=== PATIENT | female | born 1960 | race Caucasian/White ===

== ENCOUNTER 2023-04-26 14:15 | Outpatient (AMB) | payer OTHER, SELFPAY ==
--- NOTE | 2023-04-26 15:03 | A.OFFPC_ITS ---
Vital Signs 04/26/23 15:08 Height 5 ft 4 in Weight 169 lb 4 oz BMI 29.0 BP 134/82 Blood Pressure Location Lt brachial Position Sitting Intake Visit Reasons: New Patient-asthma Allergies No Known Allergies Allergy (Verified 04/26/23 15:32) Medication List - Last Reconciled 04/26/23 by MANAN Rivera adalimumab (Humira(CF) Pen) inject one - 40 mg/0.4 mL pen every 2 weeks subcut albuterol sulfate 90 mcg/actuation 2 puffs inhalation Q6H PRN folic acid 1 mg PO DAILY lorazepam 1 mg PO BID PRN methotrexate 8 Every Sunday tiotropium bromide 2.5 mcg/actuation (Spiriva Respimat) 2 puffs inhalation DAILY Tobacco use date assessed: 04/26/23 Fall risk assessment: No Falls in past year Last assessed Fall Risk: 04/26/23 Dental Screening Dental Screen Date: 04/26/23 Did you have a dental visit in the last 12 months?: Yes Did you have a dental problem in the last 6 months where you did not have access to dental care?: No Was dental information given to patient?: No HPI New Patient-asthma HPI Details asthma/smoker: approx 1/2 a pack a day. She is not interested in LDCT. RA: follows up with rheumatology. last seen by a PCP last November REPLACED BY [facility] Medical History (Updated 04/26/23 @ 15:27 by MANAN Rivera) Smoker Asthma Chronic rheumatic arthritis Social History Housing: House Patient Tobacco Use Status: Current everyday Tobacco user e-Cigarette/Vaping Use: Never Used service: No Current occupational status: retired Cognitive needs: No Hearing needs: No Vision needs: No Questionnaire PHQ-9 Over the last 2 weeks, how often have you been bothered by any of the following problems? 1. Little interest or pleasure in doing things: not at all 2. Feeling down, depressed, or hopeless: not at all 3. Trouble falling or staying asleep, or sleeping too much: not at all 4. Feeling tired or having little energy: several days 5. Poor appetite or overeating: not at all 6. Feeling bad about yourself - or that you are a failure or have let yourself or your family down: not at all 7. Trouble concentrating on things, such as reading the newspaper or watching television: not at all 8. Moving or speaking so slowly that other people could have noticed. Or the opposite - being so fidgety or restless that you have been moving around a lot more than usual: not at all 9. Thoughts that you would be better off or of hurting yourself in some way: not at all Total score: 1 Depression Screening Interpretation: Negative 13373 - PHQ-9 Billing: Yes Source: Developed by Drs. Josse Solano, Ariella Palacios, Bridger Nails and colleagues, with an educational edgar from [employer]. Thrive Questionnaire Date Thrive assessed: 04/26/23 I am a: Patient What is your living situation today?: I have a steady place to live Within the past 12 months, did the food you bought not last and you didn't have the money to get more?: Never true Within the past 12 months, did you worry whether your food would run out before you got money to buy more?: Never true Do you have trouble paying for medicines?: No Do you have trouble getting transportation to medical appointments?: No Do you have trouble paying your heating and electricity bill?: No Do you have trouble taking care of your child, family member or friend?: No Do you have trouble with day-to-day activities such as bathing, preparing meals, shopping, managing finances, etc.?: No Are you currently unemployed and looking for a job?: No Are you interested in more education?: No Currently or been in a relationship where the following occur: no concerns reported AUDIT C Alcohol Use Questionnaire (AUDIT-C) 1. How often do you have a drink containing alcohol?: Never 3. How often do you have six or more drinks on one occasion?: Never Total Score: 0 Score Reviewed/Action Taken: Yes NARDA-7 AMB Questionnaire NARDA-7 Date NARDA - 7 assessed: 04/26/23 Feeling nervous, anxious, or on edge: 1 = Several days Not being able to stop or control worryin = More than half the days Worrying too much about different things: 2 = More than half the days Trouble relaxin = Not at all Being so restless that it is hard to sit still: 0 = Not at all Becoming easily annoyed or irritable: 0 = Not at all Feeling afraid as if something awful might happen: 0 = Not at all Total NARDA-7 score (0-4 normal; 5-9 mild; 10-14 moderate; 15-21 severe): 5 Source: Developed by Drs. Josse Solano, Ariella Palacios, Bridger Nails and colleagues, with an educational edgar from [employer]. NARDA-7 Assessment Billing NARDA-7 Assessment Tool: NARDA-7 Assessment 48336 Physical exam (Primary Care) Vital Signs: Last Vital Signs BP 134/82 04/26/23 15:08 BMI result Body Mass Index 29.0 Tobacco/Smoking Status: Tobacco use Status Tobacco use date assessed 04/26/23 04/26/23 15:18 Patient Tobacco Use Status Current everyday Tobacco 04/26/23 15:18 e-Cigarette/Vaping Use Never Used 04/26/23 15:18 PHQ-9: PHQ-9 Score PHQ-9: Total score 1 04/26/23 15:31 Depression Screening Interpretation: Negative Thrive Assessment: Date of Thrive Assessment Date Thrive assessed 04/26/23 04/26/23 15:31 Currently or been in a relationship where the following occur: no concerns reported Const General: cooperative Resp Effort & Inspection: normal respiratory effort Cardio Rate: regular rate Rhythm: regular rhythm Heart sounds: S1 normal heart sound present, S2 normal heart sound present and Murmur heart sound present (? faint systolic) Extrem Right lower extremity: no edema Left lower extremity: no edema Psych Appearance: grossly normal Mental Status: mental status grossly normal Speech and movement: Normal speech and movement present Affect: normal affect Attitude: cooperative Thought process: Normal thought process present Thought content: Normal thought content present Assessment and Plan Assessment & Plan (1) Smoker: Code(s): F17.200 - Nicotine dependence, unspecified, uncomplicated Orders: Orders Complete Blood Count Auto Diff Today F17.200 - Nicotine dependence, unspecified, uncomplicated Comprehensive [place]. Panel Fast Today F17.200 - Nicotine dependence, unspecified, uncomplicated TSH reflex Free T4 Today F17.200 - Nicotine dependence, unspecified, uncomplicated UA CC w/rflx Micro + Cult Today F17.200 - Nicotine dependence, unspecified, uncomplicated Lipid Panel Today F17.200 - Nicotine dependence, unspecified, uncomplicated Referrals Cologuard Test Z12.11 - Encounter for screening for malignant neoplasm of colon, Z12.12 - Encounter for screening for malignant neoplasm of rectum Medications: New albuterol sulfate 90 mcg/actuation 2 puffs inhalation Q6H PRN 8.5 grams 0RF bronchospasm Coding Level of Care Code New Pt Level 3 (21220) Diagnoses Smoker F17.200 Additional Codes NARDA-7 Assessment Billing - NARDA-7 Assessment Tool: NARDA-7 Assessment 80308 ([id number])
[2023-04-26 15:08] VITALS: BP 134/82; BMI 29.0
== END 2023-04-26 16:00 | disposition home or self-care (01) ==
PROVIDERS: Visit Provider Nurse Practitioner Family
DX: F17.210 Nicotine dependence, cigarettes, uncomplicated (principal)
CPT/HCPCS: 99203

== ENCOUNTER 2023-05-16 10:02 | Outpatient (REF) | payer OTHER, SELFPAY ==
[2023-05-16 13:31] LABS: MANUAL DIFF FLAG NO
[2023-05-16 13:32] LABS: Appearance Urine Clear; Color Urine Yellow; Glucose Urine UA Negative (Negative); Leukocyte Esterase Urine Moderate (2+) (Negative); Nitrite Urine Negative (Negative); PH 5.5 (5.0-9.0); Specific Gravity - Urine 1.015 (1.005-1.025); UMIC TRIGGER UACC YES; Urine Blood Negative (Negative); Urine Ketones Negative (Negative); Urine Protein Negative (Neg-Trace)
[2023-05-16 13:37] LABS: Bacteria Urine 2+ (None Seen); Hyaline Casts Urine 0-2 /LPF (0-2); RBC Urine 0-2 /HPF (0-2); UACC Culture Trigger YES
[2023-05-16 13:54] LABS: Basophils Absolute Auto 0.1 X10*3/uL (0.0-0.2); Basophils Percent Auto 1.3 % (0-2); Eosinophils Absolute Auto 0.3 X10*3/uL (0.0-0.4); Eosinophils Percent Auto 4.6 % (0-4); Hematocrit 40.1 % (37.0-47.0); Hemoglobin 13.4 g/dl (12.0-16.0); Imm Gran Abs Auto 0.03 X10*3/uL (0.00-0.03); Imm Gran Pct Auto 0.5 % (0.0-0.4); Lymphocytes Absolute Auto 1.5 X10*3/uL (1.2-4.9); Lymphocytes Percent Auto 24.8 % (20-40); Mean Corpuscular HGB Conc 33.4 g/dl (31.0-35.0); Mean Corpuscular Hemoglobin 31.8 pg (27.0-33.0); Mean Corpuscular Volume 95.2 fL (80.0-98.0); Mean Platelet Volume 10.7 fL (9.4-12.3); Monocytes Absolute Auto 0.6 X10*3/uL (0.1-1.2); Monocytes Percent Auto 9.8 % (2-11); Neutrophils Absolute Auto 3.5 x10*3/uL (2.0-8.3); Platelet Count 286 X10*3/uL (160-400); Red Blood Count 4.21 X10*6/uL (4.20-5.50); Red Cell Distribution Width 12.6 % (11.0-16.0); White Blood Count 5.9 X10*3/uL (4.8-10.8)
[2023-05-16 14:28] LABS: Alanine Aminotransferase 20 U/L (0-31); Albumin Level 4.2 g/dL (3.5-5.0); Alkaline Phosphatase 85 U/L (39-117); Anion Gap 17 (12-20); Aspartate Amino Transferase 17 U/L (5-31); Bilirubin Total 0.7 mg/dL (0.0-1.0); Blood Urea Nitrogen 9 mg/dL (9-16); Calcium 9.7 mg/dL (8.4-10.2); Carbon Dioxide 22 mmol/L (22-29); Chloride 105 mmol/L (96-108); Cholesterol 276 mg/dL (<200); Estimated Glomerular Filt Rate > 60; Glucose Fasting 100 mg/dL (60-99); HDL Cholesterol 45 mg/dL (>40); LDL Cholesterol Calculated 206 mg/dL (<100); Potassium 3.7 mmol/L (3.3-5.1); Sodium 140 mmol/L (135-145); TSH reflex Free T4 1.18 uIU/mL (0.32-4.0); Total Protein 7.3 g/dL (6.5-8.0); Triglycerides 129 mg/dL (<150)
== END 2023-05-16 10:03 | disposition home or self-care (01) ==
LOC: HO.HMGCLDS 10:02
PROVIDERS: PCP Nurse Practitioner Family; Visit Provider Nurse Practitioner Family
DX: F17.200 Nicotine dependence, unspecified, uncomplicated (principal)
CPT/HCPCS: 36415; 80053; 80061; 81001; 84443; 85025; 87086

== ENCOUNTER 2023-09-04 10:17 | Outpatient (REF) | payer OTHER, SELFPAY ==
[2023-09-04 14:11] LABS: Cholesterol 177 mg/dL (<200); HDL Cholesterol 51 mg/dL (>40); LDL Cholesterol Calculated 107 mg/dL (<100); Triglycerides 97 mg/dL (<150)
== END 2023-09-04 10:18 | disposition home or self-care (01) ==
LOC: HO.HMGCLDS 10:17
PROVIDERS: PCP Nurse Practitioner Family; Visit Provider Nurse Practitioner Family
DX: E78.5 Hyperlipidemia, unspecified (principal)
CPT/HCPCS: 36415; 80061

== ENCOUNTER 2023-10-25 09:14 | Outpatient (AMB) | payer OTHER, SELFPAY ==
[2023-10-25 09:15] VITALS: BP 136/80; PULSE 72; O2SAT 96; BMI 28.3
--- NOTE | 2023-10-25 09:15 | MHC.PC.OV ---
Vital Signs 10/25/23 09:15 Height 5 ft 4 in Weight 165 lb BMI 28.3 BP 136/80 Blood Pressure Location Lt brachial Position Sitting Pulse 72 Pulse Source Pulse Oximeter Pulse Oximetry (%) 96 Oxygen Delivery Method Room Air Intake Visit Reasons: 6 month follow up Intake Note: pt is here for 6 month follow up [employer] Required: No Allergies No Known Allergies Allergy (Verified 10/25/23 09:16) Medication List - Last Reconciled 10/25/23 by MANAN Rivera adalimumab (Humira(CF) Pen) inject one - 40 mg/0.4 mL pen every 2 weeks subcut albuterol sulfate 90 mcg/actuation 2 puffs inhalation Q6H PRN atorvastatin 20 mg PO BEDTIME folic acid 1 mg PO DAILY lorazepam 1 mg PO BID PRN methotrexate 8 Every Sunday Tobacco use date assessed: 10/25/23 Fall risk assessment: No Falls in past year Last assessed Fall Risk: 10/25/23 Dental Screening Dental Screen Date: 10/25/23 Did you have a dental visit in the last 12 months?: Yes Did you have a dental problem in the last 6 months where you did not have access to dental care?: No Was dental information given to patient?: Patient has dentist HPI 6 month follow up HPI Details dyslipidemia: Pt is on a statin, cholesterol/LDL dropped in half. Pt reports adjusting her diet as well. She is feeling great. Denies chest pain, shortness of breath, and dizziness. [facility] Medical History Smoker Asthma Chronic rheumatic arthritis Surgical History No pertinent past surgical history Social History Housing: House Patient Tobacco Use Status: Current everyday Tobacco user Cigarettes Per Day: 5 e-Cigarette/Vaping Use: Never Used service: No Current occupational status: retired Cognitive needs: No Hearing needs: No Vision needs: No Questionnaire PHQ-9 Over the last 2 weeks, how often have you been bothered by any of the following problems? 1. Little interest or pleasure in doing things: not at all 2. Feeling down, depressed, or hopeless: not at all 3. Trouble falling or staying asleep, or sleeping too much: not at all 4. Feeling tired or having little energy: not at all 5. Poor appetite or overeating: not at all 6. Feeling bad about yourself - or that you are a failure or have let yourself or your family down: not at all 7. Trouble concentrating on things, such as reading the newspaper or watching television: not at all 8. Moving or speaking so slowly that other people could have noticed. Or the opposite - being so fidgety or restless that you have been moving around a lot more than usual: not at all 9. Thoughts that you would be better off or of hurting yourself in some way: not at all Total score: 0 Depression Screening Interpretation: Negative Depression Screening Done: Yes 10889 - PHQ-9 Billing: Yes Source: Developed by Drs. Josse Solano, Ariella Palacios, Bridger Nails and colleagues, with an educational edgar from [employer]. Thrive Questionnaire Date Thrive assessed: 10/25/23 I am a: Patient What is your living situation today?: I have a steady place to live Within the past 12 months, did the food you bought not last and you didn't have the money to get more?: Never true Within the past 12 months, did you worry whether your food would run out before you got money to buy more?: Never true Do you have trouble paying for medicines?: No Do you have trouble getting transportation to medical appointments?: No Do you have trouble paying your heating and electricity bill?: No Do you have trouble taking care of your child, family member or friend?: No Do you have trouble with day-to-day activities such as bathing, preparing meals, shopping, managing finances, etc.?: No Are you currently unemployed and looking for a job?: No Are you interested in more education?: No Please select the resources that you would like help with: None Currently or been in a relationship where the following occur: no concerns reported THRIVE Score: 0 AUDIT C Alcohol Use Questionnaire (AUDIT-C) 1. How often do you have a drink containing alcohol?: Never 3. How often do you have six or more drinks on one occasion?: Never Total Score: 0 Score Reviewed/Action Taken: Yes NARDA-7 AMB Questionnaire NARDA-7 Date NARDA - 7 assessed: 10/25/23 Feeling nervous, anxious, or on edge: 0 = Not at all Not being able to stop or control worryin = Not at all Worrying too much about different things: 0 = Not at all Trouble relaxin = Not at all Being so restless that it is hard to sit still: 0 = Not at all Becoming easily annoyed or irritable: 0 = Not at all Feeling afraid as if something awful might happen: 0 = Not at all Total NARDA-7 score (0-4 normal; 5-9 mild; 10-14 moderate; 15-21 severe): 0 Source: Developed by Drs. Josse Solano, Ariella Palacios, Bridger Nails and colleagues, with an educational edgar from [employer]. NARDA-7 Assessment Billing NARDA-7 Assessment Tool: NARDA-7 Assessment 33951 Review of Systems Const Reports as per HPI Physical exam (Primary Care) Vital Signs: Last Vital Signs Pulse 72 10/25/23 09:15 BP 136/80 10/25/23 09:15 Pulse Ox 96 10/25/23 09:15 Oxygen Delivery Method Room Air 10/25/23 09:15 BMI result Body Mass Index 28.3 Tobacco/Smoking Status: Tobacco use Status Tobacco use date assessed 10/25/23 10/25/23 09:18 Patient Tobacco Use Status Current everyday Tobacco 10/25/23 09:18 e-Cigarette/Vaping Use Never Used 10/25/23 09:18 PHQ-9: PHQ-9 Score PHQ-9: Total score 0 10/25/23 09:23 Depression Screening Interpretation: Negative Thrive Assessment: Date of Thrive Assessment Date Thrive assessed 10/25/23 10/25/23 09:18 Currently or been in a relationship where the following occur: no concerns reported Const General: cooperative Orientation/consciousness: patient oriented x3 Resp Effort & Inspection: normal respiratory effort Auscultation: clear to auscultation bilaterally Cardio Other: difficult to auscultate Heart sounds: S1 normal heart sound present, S2 normal heart sound present and Murmur heart sound present systolic (faint) Neuro General: patient oriented x3 Extrem Right lower extremity: no edema Left lower extremity: no edema Psych Appearance: grossly normal Mental Status: mental status grossly normal Speech and movement: Normal speech and movement present Affect: normal affect Attitude: cooperative Thought process: Normal thought process present Thought content: Normal thought content present Insight: Good insight present (Psych) Judgement: Good judgement present (Psych) Assessment and Plan Assessment & Plan (1) Dyslipidemia: Code(s): E78.5 - Hyperlipidemia, unspecified Plan: Continue atorvastatin, labs ordered (2) Systolic murmur: Code(s): R01.1 - Cardiac murmur, unspecified Plan: Echo ordered Plan The patient agreed to the use of a caregivers non medical for this encounter. Scribed for JERRY Ellis- by Mari Nowak caregivers non medical, on 10/25/2023 at 09:45 EST. Orders: Orders CA echo transthoracic complete Today R01.1 - Cardiac murmur, unspecified TSH reflex Free T4 Today E78.5 - Hyperlipidemia, unspecified, R01.1 - Cardiac murmur, unspecified UA CC w/rflx Micro + Cult Today E78.5 - Hyperlipidemia, unspecified, R01.1 - Cardiac murmur, unspecified AMB EKG-In Office Today E78.5 - Hyperlipidemia, unspecified, F17.200 - Nicotine dependence, unspecified, uncomplicated, R01.1 - Cardiac murmur, unspecified Complete Blood Count Auto Diff Today E78.5 - Hyperlipidemia, unspecified, R01.1 - Cardiac murmur, unspecified Comprehensive [place]. Panel Fast Today E78.5 - Hyperlipidemia, unspecified, R01.1 - Cardiac murmur, unspecified Lipid Panel Today E78.5 - Hyperlipidemia, unspecified, R01.1 - Cardiac murmur, unspecified Medications: Refilled atorvastatin 20 mg PO BEDTIME 90 tabs 0RF Coding Level of Care Code Est Pt Level 3 (96000) Diagnoses Dyslipidemia E78.5 Systolic murmur R01.1 Additional Codes NARDA-7 Assessment Billing - NARDA-7 Assessment Tool: NARDA-7 Assessment 58038 ([id number])
== END 2023-10-25 10:11 | disposition home or self-care (01) ==
PROVIDERS: PCP Internal Medicine; Visit Provider Nurse Practitioner Family
DX: E78.5 Hyperlipidemia, unspecified (principal); R01.1 Cardiac murmur, unspecified
CPT/HCPCS: 99213

== ENCOUNTER → 2023-11-15 10:34 | Outpatient (REF) | payer MEDICARE, OTHER, SELFPAY ==
--- NOTE | 2023-11-15 10:36 | CA_ITS ---
Transthoracic Echocardiogram Patient (Last, First, Middle): Neelam Bradford A Gender: Female Date of : 1960 Age: 63 Procedure Date: 11/15/2023 Procedure Type: Transthoracic Echocardiogram Location: OP Height: 154.94 cm Weight: 73.94 kg BSA: 1.73 m2 Heart Rate: 64 bpm BP: 150 / 80 mmHg Manager Site: [facility] Referring MD: Stan Eli [facility] Symptoms: R01.1 - Cardiac murmur, unspecified Study Quality: Fair ECG Rhythm: Sinus Conclusions: - The left ventricular systolic function is normal. The calculated ejection fraction is 55% by biplane method. - There is mild calcification of the aortic valve. - No obvious valvular pathology seen on this study. Findings Left Ventricle Normal left ventricular cavity size. There is normal left ventricular wall thickness. The left ventricular systolic function is normal. The calculated ejection fraction is 55% by biplane method. There is no evidence of regional wall motion abnormalities. Diastolic function is normal for age. LV peak GLS -18.6%. Right Ventricle Normal right ventricular cavity size and systolic function. Atria Both atria are normal in size. Aortic Valve There is mild calcification of the aortic valve. There is no aortic valve stenosis. There is no aortic valve regurgitation. Mitral Valve The mitral valve appears normal. There is trace mitral valve regurgitation. There is no mitral valve stenosis. Pulmonic Valve The pulmonic valve is likely normal. Tricuspid Valve Normal tricuspid valve structure. There is trace tricuspid valve regurgitation. Tricuspid regurgitation envelope is inadequate for calculation of right ventricular systolic pressure. Great Vessels The asc aorta is normal in size. Venous The inferior vena cava is normal in size and collapses greater than 50% with inspiration. Pericardium/Pleural There is no evidence of pericardial effusion. Prior Study Comparison No prior study available for comparison. Recommendations, Care & Conclusions No obvious valvular pathology seen on this study. Measurements 2D Linear Measurements IVSd: 1.02 0.6-0.9/0.6-1.0 cm LVIDd: 4.45 3.9-5.3/4.2-5.9 cm LVIDd Index: 2.57 2.4-3.2/2.2-3.1 cm/m2 LVIDs: 2.58 2.0-3.6 cm LVPWd: 0.94 0.7-1.1 cm LA Diam: 3.10 2.7-3.8/3.0-4.0 cm LAIDs Index: 1.79 1.5-2.3 cm/m2 LV Mass: 181.75 67-162/88-224 g LV Mass Index: 105.06 43-95/49-115 g/m2 LVOT Diam: 2.10 3.0+(-)1.3 cm 2D Systolic Function EF 4C: 56.60 >55% EF 2C: 53.80 >55% EF BiP: 55.30 >55% Mitral Valve MV Pk E: 0.64 MV PK A: 0.81 MV Decel Time: 191.00 E/A: 0.80 E'Lateral: 9.46 E'Medial: 11.30 E/E' Med: 5.70 E/E' Lat: 6.80 PHT: 56.00 MVA PHT: 3.93 Decel [place]: 3.36 Aortic Valve AoV Pk Andi: 1.59 AoV Mn Andi: 1.10 AoV VTI: 0.38 AoV Pk Grad: 10.00 Aov Mn Grad: 5.00 ALEXANDRU Cont.VTI: 2.08 LVOT LVOT Pk Andi: 1.06 LVOT Mn Andi: 0.67 LVOT VTI: 0.23 LVOT Pk Grad: 4.00 LVOT Mn Grad: 2.00 LVOT Diam: 2.10 LVOT Area: 3.46 Diastolic Function MV Pk E: 0.64 MV Pk A: 0.81 E/A: 0.80 E'Medial: 11.30 E/E' Med: 5.70 E' Laterial: 9.46 E/E' Lat: 6.80 Right Ventricle TAPSE (mm): 23.50 TVS' Andi: 10.40 Tricuspid Valve RA Press: 3.00 Great Vessels Aorta Sinus of Valsalva: 3.30 2.0-3.5 cm Ao Asc: 2.80 2.1-3.4 cm Pulmonary Valve PV Pk Andi: 1.10 Peak PV Grad: 5.00 Updated in Other Vendor System with Status of Final Dave Bautista MD electronically signed on 11/16/2023 11:45:09 AM with status of Final
== END ==
LOC: HO.CARD 10:34
PROVIDERS: PCP Nurse Practitioner Family; Visit Provider Nurse Practitioner Family
DX: R01.1 Cardiac murmur, unspecified (principal)
CPT/HCPCS: 93306; 93356

== ENCOUNTER → 2023-11-15 10:36 | Outpatient (BNV) | payer MEDICARE, SELFPAY | PROVIDERS: PCP Nurse Practitioner Family; Visit Provider Internal Medicine | DX: I35.8 Other nonrheumatic aortic valve disorders (principal); R01.1 Cardiac murmur, unspecified | CPT/HCPCS: 93306; 93356 ==

== ENCOUNTER 2024-04-25 09:22 | Outpatient (REF) | payer MEDICARE, SELFPAY ==
[2024-04-25 13:18] LABS: MANUAL DIFF FLAG NO
[2024-04-25 13:48] LABS: Appearance Urine Clear; Basophils Absolute Auto 0.1 X10*3/uL (0.0-0.2); Basophils Percent Auto 1.4 % (0-2); Color Urine Yellow; Eosinophils Absolute Auto 0.3 X10*3/uL (0.0-0.4); Eosinophils Percent Auto 4.6 % (0-4); Glucose Urine UA Negative (Negative); Hematocrit 38.9 % (37.0-47.0); Hemoglobin 13.1 g/dl (12.0-16.0); Imm Gran Abs Auto 0.04 X10*3/uL (0.00-0.03); Imm Gran Pct Auto 0.6 % (0.0-0.4); Leukocyte Esterase Urine Small (1+) (Negative); Lymphocytes Absolute Auto 1.7 X10*3/uL (1.2-4.9); Lymphocytes Percent Auto 24.2 % (20-40); Mean Corpuscular HGB Conc 33.7 g/dl (31.0-35.0); Mean Corpuscular Hemoglobin 33.5 pg (27.0-33.0); Mean Corpuscular Volume 99.5 fL (80.0-98.0); Mean Platelet Volume 10.8 fL (9.4-12.3); Monocytes Absolute Auto 0.6 X10*3/uL (0.1-1.2); Monocytes Percent Auto 8.3 % (2-11); Neutrophils Absolute Auto 4.4 x10*3/uL (2.0-8.3); Neutrophils Percent Auto 60.9 % (45-73); Nitrite Urine Negative (Negative); Platelet Count 225 X10*3/uL (160-400); Red Blood Count 3.91 X10*6/uL (4.20-5.50); Red Cell Distribution Width 12.7 % (11.0-16.0); Specific Gravity - Urine 1.015 (1.005-1.025); UMIC TRIGGER UACC YES; Urine Blood Negative (Negative); Urine Ketones Negative (Negative); Urine Protein Negative (Neg-Trace); White Blood Count 7.2 X10*3/uL (4.8-10.8)
[2024-04-25 13:56] LABS: Alanine Aminotransferase 25 U/L (0-31); Alkaline Phosphatase 89 U/L (39-117); Anion Gap 12 (12-20); Aspartate Amino Transferase 20 U/L (5-31); Bilirubin Total 0.4 mg/dL (0.0-1.0); Blood Urea Nitrogen 16 mg/dL (9-16); Calcium 9.4 mg/dL (8.4-10.2); Carbon Dioxide 26 mmol/L (22-29); Chloride 107 mmol/L (96-108); Cholesterol 183 mg/dL (<200); Estimated Glomerular Filt Rate > 60; Glucose Fasting 94 mg/dL (60-99); HDL Cholesterol 55 mg/dL (>40); LDL Cholesterol Calculated 111 mg/dL (<100); Potassium 4.1 mmol/L (3.3-5.1); Sodium 141 mmol/L (135-145); Total Protein 6.8 g/dL (6.5-8.0); Triglycerides 85 mg/dL (<150)
[2024-04-25 14:07] LABS: Bacteria Urine None Seen (None Seen); Hyaline Casts Urine 0-2 /LPF (0-2); RBC Urine 0-2 /HPF (0-2); Squamous Epithelial Cell Urine 0-2 /HPF (0-2); UACC Culture Trigger YES; WBC Urine 0-5 /HPF (0-5)
[2024-04-25 14:14] LABS: TSH reflex Free T4 1.77 uIU/mL (0.32-4.0)
== END 2024-04-25 09:23 | disposition home or self-care (01) ==
LOC: HO.HMGCLDS 09:22
PROVIDERS: PCP Nurse Practitioner Family; Visit Provider Nurse Practitioner Family
DX: E78.5 Hyperlipidemia, unspecified (principal); R01.1 Cardiac murmur, unspecified
CPT/HCPCS: 36415; 80053; 80061; 81001; 84443; 85025; 87086

== ENCOUNTER 2024-04-30 08:54 | Outpatient (AMB) | payer MEDICARE, SELFPAY ==
--- NOTE | 2024-04-30 08:57 | MHC.PC.OV ---
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 Labs were already performed. Cologuard is up to date. Mammo is up to date according to pt. Pt follows up with rheumatology. Pt is a smoker, refuses low-dose CTs. Dyslipidemia: Will increase atorvastatin from 20mg to 40mg. Highly likely she has underlying CAD, though denies any symptoms. Recommended a low dose asa daily. [facility] Medical History Osteoarthritis of right knee Smoker Asthma Chronic rheumatic arthritis Surgical History No pertinent past surgical history Social History Housing: House Patient Tobacco Use Status: Current everyday Tobacco user Cigarettes Per Day: 5 e-Cigarette/Vaping Use: Never Used service: No Current occupational status: retired Cognitive needs: No Hearing needs: No Vision needs: No Questionnaire PHQ-9 Over the last 2 weeks, how often have you been bothered by any of the following problems? 81042 - PHQ-9 Billing: Patient declined-do not bill Source: Developed by Drs. Josse Solano, Ariella Palacios, Bridger Nails and colleagues, with an educational edgar from [employer]. Thrive Questionnaire Date Thrive assessed: 10/25/23 I am a: Patient What is your living situation today?: I have a steady place to live Within the past 12 months, did the food you bought not last and you didn't have the money to get more?: Never true Within the past 12 months, did you worry whether your food would run out before you got money to buy more?: Never true Do you have trouble paying for medicines?: No Do you have trouble getting transportation to medical appointments?: No Do you have trouble paying your heating and electricity bill?: No Do you have trouble taking care of your child, family member or friend?: No Do you have trouble with day-to-day activities such as bathing, preparing meals, shopping, managing finances, etc.?: No Are you interested in more education?: No THRIVE Score: 0 AUDIT C Alcohol Use Questionnaire (AUDIT-C) 1. How often do you have a drink containing alcohol?: Never Total Score: 0 NARDA-7 AMB Questionnaire NARDA-7 Date NARDA - 7 assessed: 10/25/23 Source: Developed by Drs. Josse Solano, Ariella Palacios, Bridger Nalis and colleagues, with an educational edgar from [employer]. NARDA-7 Assessment Billing NARDA-7 Assessment Tool: pt declined-do not bill Review of Systems Const Denies chills and Denies fever(s) Eyes Denies blurry vision ENT Denies vertigo, Denies dizziness and Denies sore throat Card Denies chest pain at rest, Denies chest pain with activity, Denies diaphoresis, Denies dyspnea and Denies dyspnea on exertion Resp Denies cough, Denies dyspnea, Denies dyspnea on exertion and Denies wheezing GI Denies abdominal pain, Denies melena, Denies hematochezia, Denies constipation, Denies diarrhea and Denies loose stools Denies hematuria Musc Denies numbness and Denies tingling Skin/Breast Denies lesions Neuro Denies vertigo, Denies dizziness, Denies numbness and Denies tingling Psych Denies anxiety, Denies depression, Denies homicidal ideation, Denies suicidal ideation and Denies other (substance abuse) Aller/Immun Denies wheezing Physical exam (Primary Care) Vital Signs: Last Vital Signs Pulse 80 04/30/24 08:58 BP 138/82 10/02/24 08:58 Pulse Ox 97 04/30/24 08:58 BMI result Body Mass Index 29.2 Tobacco/Smoking Status: Tobacco use Status Tobacco use date assessed 10/25/23 04/30/24 08:57 Patient Tobacco Use Status Current everyday Tobacco 04/30/24 08:57 e-Cigarette/Vaping Use Never Used 04/30/24 08:57 Thrive Assessment: Date of Thrive Assessment Date Thrive assessed 10/25/23 04/30/24 08:57 Const General: cooperative Nutritional Appearance: well nourished Orientation/consciousness: patient oriented x3 HENMT Head: Yes normal to inspection, Yes normocephalic and Yes atraumatic Ears: TM's normal bilaterally Eyes General: appearance normal, both eyes and all related structures Alignment and Position: alignment normal and position normal Neck Neck: Yes normal visual inspection, Yes no lymphadenopathy and Yes supple Resp Effort & Inspection: normal respiratory effort Auscultation: clear to auscultation bilaterally Cardio Rate: regular rate Rhythm: regular rhythm Heart sounds: S1 normal heart sound present, S2 normal heart sound present and Murmur heart sound present systolic GI Palpation (GI): Soft to palpation and nontender Auscultation: normal bowel sounds Skin Rashes: no rashes Neuro General: patient oriented x3, moves all extremities, no focal motor deficits and deep tendon reflexes 2+ bilaterally Romberg Test: Negative Psych Appearance: grossly normal Mental Status: mental status grossly normal Speech and movement: Normal speech and movement present Affect: normal affect Attitude: cooperative Thought process: Normal thought process present Thought content: Normal thought content present Insight: Good insight present (Psych) Judgement: Good judgement present (Psych) Coding Level of Care Code Est Pt Prev Care >65y(28224) Diagnoses Smoker F17.200 Physical exam Z00.00 Postmenopausal Z78.0 Assessment & Plan Assessment & Plan (1) Smoker: Code(s): F17.200 - Nicotine dependence, unspecified, uncomplicated Category: Social Hx Plan: refused LDCT, knows dangers of smoking (2) Physical exam: Code(s): Z00.00 - Encounter for general adult medical examination without abnormal findings Category: Medical Plan: labs already performed (3) Postmenopausal: Code(s): Z78.0 - Asymptomatic menopausal state Category: Medical Plan The patient agreed to the use of a medical record administrator for this encounter. Scribed for JERRY Ellis-HOMERO by Mari Nowak medical record administrator, on 04/30/2024 at 09:05 EST. Orders: Orders XR DEXA axial skeleton Today Z78.0 - Asymptomatic menopausal state Pneumococcal 20 Immunization Today Z23 - Encounter for immunization Vitamin D 25-OH Total Today Z78.0 - Asymptomatic menopausal state Medications: New pneumoc 20-jl conj-dip cr(PF) 0.5 mL IM ONCE 0.5 mL 0RF Z23 - Encounter for immunization Changed From atorvastatin 20 mg PO BEDTIME 90 tabs 1RF To atorvastatin 40 mg PO BEDTIME 90 tabs 1RF
[2024-04-30 08:58] VITALS: BP 138/82; PULSE 80; O2SAT 97; BMI 29.2
== END 2024-04-30 14:53 | disposition home or self-care (01) ==
PROVIDERS: PCP Nurse Practitioner Family; Visit Provider Nurse Practitioner Family
DX: F17.200 Nicotine dependence, unspecified, uncomplicated (principal); Z00.00 Encounter for general adult medical examination without abnormal findings; Z78.0 Asymptomatic menopausal state

== ENCOUNTER → 2024-04-30 08:54 | Outpatient (BNVA) | payer MEDICARE, SELFPAY | PROVIDERS: PCP Nurse Practitioner Family; Visit Provider Nurse Practitioner Family | DX: Z00.00 Encounter for general adult medical examination without abnormal findings (principal); F17.200 Nicotine dependence, unspecified, uncomplicated; Z78.0 Asymptomatic menopausal state; Z71.6 Tobacco abuse counseling | CPT/HCPCS: 99397 ==

== ENCOUNTER 2024-05-21 11:04 | Outpatient (REF) | payer MEDICARE, SELFPAY ==
--- NOTE | ~2024-05-21 | MM_ITS ---
EXAMINATION: BONE DENSITOMETRY CLINICAL INDICATION: Asymptomatic menopausal state. COMPARISON: This is the patient's baseline examination. TECHNIQUE: Using a [employer] DXA System (software version: 13.1) manufactured by [employer], dual-energy x-ray absorptiometry was performed of the lumbar spine and left hip. The images are of good technical quality. Summary results are attached. FINDINGS: LEFT FEMUR, NECK: BMD 0.693 g/cm2, Z-score -1.3, T-score -2.5, osteoporosis. LEFT FEMUR, TOTAL: BMD 0.679 g/cm2, Z-score -1.7, T-score -2.6, osteoporosis. AP SPINE L1-L4: BMD 0.828 g/cm2, Z-score -1.7, T-score -2.9, osteoporosis. IDENTIFIED RISK FACTORS: Menopause, rheumatoid arthritis, current smoker. HISTORY OF FRACTURE: None listed. MEDICATIONS: None listed. MM/XR DEXA axial skeleton IMPRESSION: 1. DIAGNOSIS: Osteoporosis based on the lowest T-score value of -2.9 in the lumbar spine applying World Health Organization criteria. 2. 10-YEAR FRACTURE RISK PREDICTION, FRAX: According to the guidelines, FRAX calculation should only be performed on patients in the osteopenia bone density category. Therefore, FRAX was not performed on this patient. 3. Treatment Recommendations: NOF guidelines recommend consideration for treatment in postmenopausal women and men age 50 and older presenting with the following: -A hip or vertebral (clinical or morphometric) fracture. -T-score less than or equal to -2.5 at the femoral neck or spine after appropriate evaluation to exclude secondary causes. -Low bone mass at the hip or spine and a 10-year fracture probability by FRAX of greater than or equal to 3% for hip fracture or greater than or equal to 20% for major osteoporotic fracture based on the [place] adapted WHO algorithm. 4. Other Recommendations: All treatment decisions require clinical judgment and consideration of individual patient factors, including patient preferences, comorbidities, previous drug use, risk factors not captured in the FRAX model (e.g. frailty, falls, vitamin D deficiency, increased bone turnover, interval significant decline in bone density) and possible under or overestimation of fracture risk by FRAX. Additional medical evaluation for secondary cause of low bone mineral density may be appropriate. FUTURE SCAN RECOMMENDATION: People with diagnosed cases of osteoporosis or at high risk for fracture should have regular bone mineral density tests. For patients eligible for Medicare, routine testing is allowed once every 2 years. The testing frequency can be increased to one year for patients who have rapidly progressing disease, those who are receiving or discontinuing medical therapy to restore bone mass, or have additional risk factors. Electronically signed by: Aleksandra Marin MD 05/22/2024 10:39 AM EDT
== END 2024-05-21 11:05 | disposition home or self-care (01) ==
LOC: HO.MAMMO 11:04
PROVIDERS: PCP Nurse Practitioner Family; Visit Provider Nurse Practitioner Family
DX: Z13.820 Encounter for screening for osteoporosis (principal); Z78.0 Asymptomatic menopausal state
CPT/HCPCS: 77080

== ENCOUNTER 2024-05-29 10:25 | Outpatient (REF) | payer MEDICARE, SELFPAY ==
[2024-05-29 14:29] LABS: Vitamin D 25-OH Total 21.9 ng/mL (>30)
== END 2024-05-29 10:26 | disposition home or self-care (01) ==
LOC: HO.HMGCLDS 10:25
PROVIDERS: PCP Nurse Practitioner Family; Visit Provider Nurse Practitioner Family
DX: Z78.0 Asymptomatic menopausal state (principal)
CPT/HCPCS: 36415; 82306

== ENCOUNTER 2024-10-24 09:29 | Outpatient (REF) | payer MEDICARE, SELFPAY ==
[2024-10-24 14:20] LABS: Vitamin D 25-OH Total 78.8 ng/mL (>30)
== END 2024-10-24 09:30 | disposition home or self-care (01) ==
LOC: HO.HMGCLDS 09:29
PROVIDERS: PCP Nurse Practitioner Family; Visit Provider Nurse Practitioner Family
DX: E55.9 Vitamin D deficiency, unspecified (principal)
CPT/HCPCS: 36415; 82306

== ENCOUNTER 2024-10-30 11:08 | Outpatient (AMB) | payer MEDICARE, SELFPAY ==
[2024-10-30 11:15] VITALS: BP 144/90; PULSE 83; O2SAT 97; BMI 29.3
--- NOTE | 2024-10-30 11:15 | A.OFFPC_ITS ---
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 Required: No Accompanied by: Self / Same As Patient Allergies No Known Allergies Allergy (Verified 10/30/24 12:40) Medication List - Last Reconciled 10/30/24 by JERRY Rivera-BC adalimumab (Humira(CF) Pen) inject one - 40 mg/0.4 mL pen every 2 weeks subcut albuterol sulfate 90 mcg/actuation 2 puffs inhalation Q6H PRN albuterol sulfate 90 mcg/actuation (Ventolin HFA) 2 puffs inhalation Q6H PRN atorvastatin 40 mg PO BEDTIME budesonide-formoterol 80-4.5 mcg/actuation (Symbicort) 1 puff inhalation BID cholecalciferol (vitamin D3) 1,250 mcg PO QWEEK 3 months folic acid 1 mg PO DAILY lorazepam 1 mg PO BID PRN 30 days methotrexate 8 Every Sunday Tobacco use date assessed: 10/30/24 Fall risk assessment: No Falls in past year Last assessed Fall Risk: 10/30/24 Dental Screening Dental Screen Date: 10/30/24 Did you have a dental visit in the last 12 months?: Yes Did you have a dental problem in the last 6 months where you did not have access to dental care?: No Was dental information given to patient?: Patient has dentist HPI 6 mth f/u HPI Details Chief Complaint The patient presents for follow-up regarding dyslipidemia and asthma management. History of Present Illness The patient is a 64-year-old female presenting for follow-up evaluation of dyslipidemia and asthma. She has a persistent smoking habit, which may exacerbate her respiratory status, notably characterized by intermittent wheezing that she associates with exposure to certain odors such as candles and fragrances. Despite ongoing discussions, she declines to undertake a low-dose CT scan which might be relevant in assessing any pulmonary implications of her history. Cardiovascular evaluation reveals a systolic murmur, but there are no accompanying signs like chest pain or edema (echo last year). Her symptoms do not currently include systemic signs such as fever, chills, or neurological complaints. Social History - Smoking: Active smoker - Sensitivity to strong odors such as ca ndles and fragrances Health Maintenance - Patient declines low-dose CT scan scre ening. Review of Systems - Cardiovascular: Denies recent chest pa in, dyspnea, or edema. - Respiratory: Denies recent exacerbatio ns, notes sensitivity to strong odors. Physical Exam General: Cooperative, healthy appearing, comfortable, no acute distress and well developed Orientation: Patient oriented x3 Limitations: No limitations Head: Normal to inspection Ears: Hearing grossly normal bilaterally Nose: Normal external nose present Face and sinus: Normal facial exam Eyes: Appearance normal, both eyes and all related structures Neck: Normal visual inspection and Yes full ROM Respiratory: Fairly clear bilaterally, intermittent wheezing noted Cardiovascular: Regular rate and rhythm. Normal S1 and S2. Systolic murmur noted GI: Normal to inspection. Soft to palpation and nontender Skin: No rashes or lesions noted Neuro: Patient oriented x3 Extremities: Normal to inspection, no edema noted Results Plan The management of the patient's asthma will involve the commencement of Symbicort to help control wheezing and mitigate symptoms triggered by exposure to strong odors. For her dyslipidemia, emphasis on smoking cessation is advised, though the patient chose not to pursue further lung screening at this visit. The detected systolic murmur currently does not necessitate additional cardiovascular investigations, given the absence of symptomatic burden. Discussion Notes During our discussion, I reviewed the current state of the patient's asthma and dyslipidemia, focusing on pertinent management strategies. I proposed using Sy mbicort for asthma management to which the patient agreed, understanding the benefits of reducing airway inflammation and managing bronchoconstriction. We discussed the potential future need for imaging studies to evaluate her lung health, but she expressed explicit refusal for a low-dose CT scan. The systolic murmur detected did not prompt intervention as the patient is asymptomatic regarding cardiovascular symptoms. Lifestyle modification including smoking cessation remains a vital component of her treatment plan. Patient Instructions - Use Symbicort as prescribed for asthma management. - Avoid exposure to strong odors that ex acerbate wheezing, such as candles and perfumes. - Consider discussing smoking cessation strategies in future visits. - Monitor and report any new symptoms rangel ch as chest pain, significant dyspnea, or edema. [facility] Medical History (Updated 10/30/24 @ 12:41 by Stan Eli [facility]) Vitamin D deficiency Osteoarthritis of right knee Smoker Asthma Chronic rheumatic arthritis Surgical History No pertinent past surgical history Social History Housing: House Patient Tobacco Use Status: Current everyday Tobacco user Cigarettes Per Day: 5 e-Cigarette/Vaping Use: Never Used service: No Current occupational status: retired Cognitive needs: No Hearing needs: No Vision needs: No Questionnaire PHQ-9 Over the last 2 weeks, how often have you been bothered by any of the following problems? 1. Little interest or pleasure in doing things: not at all 2. Feeling down, depressed, or hopeless: not at all 3. Trouble falling or staying asleep, or sleeping too much: not at all 4. Feeling tired or having little energy: not at all 5. Poor appetite or overeating: not at all 6. Feeling bad about yourself - or that you are a failure or have let yourself or your family down: not at all 7. Trouble concentrating on things, such as reading the newspaper or watching television: not at all 8. Moving or speaking so slowly that other people could have noticed. Or the opposite - being so fidgety or restless that you have been moving around a lot more than usual: not at all 9. Thoughts that you would be better off or of hurting yourself in some way: not at all Total score: 0 Depression Screening Interpretation: Negative Depression Screening Done: Yes 10829 - PHQ-9 Billing: Yes Source: Developed by Drs. Josse Solano, Ariella Palacios, Bridger Nails and colleagues, with an educational edgar from [employer]. Thrive Questionnaire Date Thrive assessed: 10/30/24 I am a: Patient What is your living situation today?: I have a steady place to live Within the past 12 months, did the food you bought not last and you didn't have the money to get more?: Never true Within the past 12 months, did you worry whether your food would run out before you got money to buy more?: Never true Do you have trouble paying for medicines?: No Do you have trouble getting transportation to medical appointments?: No Do you have trouble paying your heating and electricity bill?: No Do you have trouble taking care of your child, family member or friend?: No Do you have trouble with day-to-day activities such as bathing, preparing meals, shopping, managing finances, etc.?: No Are you currently unemployed and looking for a job?: No Are you interested in more education?: No Please select the resources that you would like help with: None Currently or been in a relationship where the following occur: No concerns reported THRIVE Score: 0 AUDIT C Alcohol Use Questionnaire (AUDIT-C) 1. How often do you have a drink containing alcohol?: Never 3. How often do you have six or more drinks on one occasion?: Never Total Score: 0 Score Reviewed/Action Taken: Yes NARDA-7 AMB Questionnaire NARDA-7 Date NARDA - 7 assessed: 10/30/24 Feeling nervous, anxious, or on edge: 0 = Not at all Not being able to stop or control worryin = Not at all Worrying too much about different things: 0 = Not at all Trouble relaxin = Not at all Being so restless that it is hard to sit still: 0 = Not at all Becoming easily annoyed or irritable: 0 = Not at all Feeling afraid as if something awful might happen: 0 = Not at all Total NARDA-7 score (0-4 normal; 5-9 mild; 10-14 moderate; 15-21 severe): 0 Source: Developed by Drs. Josse Solano, Ariella Palacios, Bridger Nails and colleagues, with an educational edgar from [employer]. NARDA-7 Assessment Billing NARDA-7 Assessment Tool: NARDA-7 Assessment 80122 Physical exam (Primary Care) Vital Signs: Last Vital Signs Pulse 83 10/30/24 11:15 BP 144/90 H 10/30/24 11:15 Pulse Ox 97 10/30/24 11:15 Oxygen Delivery Method Room Air 10/30/24 11:15 BMI result Body Mass Index 29.3 Tobacco/Smoking Status: Tobacco use Status Tobacco use date assessed 10/30/24 10/30/24 11:16 Patient Tobacco Use Status Current everyday Tobacco 10/30/24 11:16 e-Cigarette/Vaping Use Never Used 10/30/24 11:16 PHQ-9: PHQ-9 Score PHQ-9: Total score 0 10/30/24 12:00 Depression Screening Interpretation: Negative Thrive Assessment: Date of Thrive Assessment Date Thrive assessed 10/30/24 10/30/24 11:16 Currently or been in a relationship where the following occur: No concerns reported Coding Level of Care Code Est Pt Level 3 (22032) Diagnoses Dyslipidemia E78.5 Smoker F17.200 Asthma J45.909 Additional Codes NARDA-7 Assessment Billing - NARDA-7 Assessment Tool: NARDA-7 Assessment 77996 ([id number]) PHQ-9 - 12776 - PHQ-9 Billing: Yes ([id number]) Assessment & Plan Assessment & Plan (1) Dyslipidemia: Code(s): E78.5 - Hyperlipidemia, unspecified Category: Medical (2) Smoker: Code(s): F17.200 - Nicotine dependence, unspecified, uncomplicated Category: Social Hx (3) Asthma: Code(s): J45.909 - Unspecified asthma, uncomplicated Category: Medical Plan . Orders: Orders Comprehensive [place]. Panel Fast Today E78.5 - Hyperlipidemia, unspecified TSH reflex Free T4 Today E78.5 - Hyperlipidemia, unspecified Complete Blood Count Auto Diff Today E78.5 - Hyperlipidemia, unspecified UA CC w/rflx Micro + Cult Today E78.5 - Hyperlipidemia, unspecified Lipid Panel Today E78.5 - Hyperlipidemia, unspecified Medications: New budesonide-formoterol 80-4.5 mcg/actuation (Symbicort) 1 puff inhalation BID 10.2 grams 0RF albuterol sulfate 90 mcg/actuation (Ventolin HFA) 2 puffs inhalation Q6H PRN 8.5 grams 0RF shortness of breath or wheezing
[2024-10-30 12:12] VITALS: BP 130/84
== END 2024-10-30 13:06 | disposition home or self-care (01) ==
LOC: HO.HMCC 11:09
PROVIDERS: PCP Nurse Practitioner Family; Visit Provider Nurse Practitioner Family
DX: E78.5 Hyperlipidemia, unspecified (principal); F17.200 Nicotine dependence, unspecified, uncomplicated; J45.909 Unspecified asthma, uncomplicated

== ENCOUNTER → 2024-10-30 11:08 | Outpatient (BNVA) | payer MEDICARE, SELFPAY | PROVIDERS: PCP Nurse Practitioner Family; Visit Provider Nurse Practitioner Family | DX: E78.5 Hyperlipidemia, unspecified (principal); J45.909 Unspecified asthma, uncomplicated; F17.210 Nicotine dependence, cigarettes, uncomplicated | CPT/HCPCS: 96127; 99212 ==

== ENCOUNTER 2025-02-20 08:38 | Outpatient (AMB) | payer MEDICARE, SELFPAY ==
[2025-02-20 09:06] VITALS: BP 158/82; PULSE 80; TEMP 37; O2SAT 95; BMI 29.0
--- NOTE | 2025-02-20 09:06 | MHC.OFFWIV ---
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 Is last menstrual period known: No Post menopausal: Yes Patient : No Allergies No Known Allergies Allergy (Verified 02/20/25 09:08) Medication List - Last Reconciled 02/20/25 by Carmen Martinez PA-C adalimumab (Humira(CF) Pen) inject one - 40 mg/0.4 mL pen every 2 weeks subcut albuterol sulfate 90 mcg/actuation (Ventolin HFA) 2 puffs inhalation Q6H PRN albuterol sulfate 90 mcg/actuation 2 puffs inhalation Q6H PRN atorvastatin 40 mg PO BEDTIME budesonide-formoterol 80-4.5 mcg/actuation (Symbicort) 1 puff inhalation BID cholecalciferol (vitamin D3) 1,250 mcg PO QWEEK 3 months folic acid 1 mg PO DAILY hydroxyzine HCl 10 mg PO Q6-8H lorazepam 1 mg PO BID PRN 30 days methotrexate 8 Every Sunday prednisone 10 mg PO DIRECTED Do you need a note to return to daycare/school/sports/work: No HPI HPI Comments History of Present Illness Details History - The patient is a 64-year-old female presenting with a rash suspected to be Poison Mechelle Dermatitis. - The rash began after pulling weeds 5 days ago, despite wearing gloves, and was noticed 4 days ago. - The rash is primarily located around the right eye area and has been worsening daily. - The patient has been using a wash to remove oils and hydrocortisone cream, but these have not been effective. - There is no change in vision or pain in the eye. - The patient has previously experienced Poison Mechelle Dermatitis and has used prednisone in the past for it Physical Exam General: Cooperative, healthy appearing, comfortable, no acute distress and well developed Orientation: Patient oriented x3 Limitations: No limitations Head: Normal to inspection Ears: Hearing grossly normal bilaterally Nose: Normal External nose present Eyes: Appearance normal Neck: Normal visual inspection and Yes full ROM Respiratory: Normal respiratory effort and able to speak in complete sentences. Skin: edema and erythema noted right periorbital area, forehead, nose, and bilateral cheeks; no other rashes or lesions noted Neuro: Patient oriented x3, gait normal Extremities: Moving all extremities normally [facility] Medical History (Updated 02/20/25 @ 09:51 by Carmen Martinez PA-C) Vitamin D deficiency Osteoarthritis of right knee Smoker Asthma Chronic rheumatic arthritis Surgical History No pertinent past surgical history Social History Housing: House Patient Tobacco Use Status: Current everyday Tobacco user Cigarettes Per Day: 5 e-Cigarette/Vaping Use: Never Used Patient : No service: No Current occupational status: retired Cognitive needs: No Hearing needs: No Vision needs: No Review of Systems Const All systems reviewed & are unremarkable except as noted in HPI and below Physical Exam Vital Signs: Last Vital Signs Temp 98.6 F 02/20/25 09:06 Pulse 80 02/20/25 09:06 BP 158/82 H 02/20/25 09:06 Pulse Ox 95 02/20/25 09:06 Oxygen Delivery Method Room Air 02/20/25 09:06 BMI result Body Mass Index 29.0 Assessment & Plan Assessment & Plan (1) Contact dermatitis: Code(s): L25.9 - Unspecified contact dermatitis, unspecified cause Qualifiers: Contact dermatitis type: allergic Contact dermatitis trigger: non-food plants Qualified Code(s): L23.7 - Allergic contact dermatitis due to plants, except food Plan: Plan Patient was informed and verbally consented to the use of an ambient scribe for clinic note documentation during this visit - The patient will be prescribed an oral steroid, prednisone, with a tapering dose over 8 days to manage the rash. - Hydrocortisone cream is advised for use on the forehead, nose, and face, avoiding the eye area. - Hydroxyzine is prescribed for daytime use to manage itching, with Benadryl recommended at night. Medications: New hydroxyzine HCl 10 mg PO Q6-8H 20 tabs 0RF prednisone take 4 tablets on days 1-2, take 3 tablets on days 3-4, take 2 tablets on days 5-6, take 1 tablet on days 7-8. 10 mg PO DIRECTED 20 tabs 0RF Coding Level of Care Code Est Pt Level 3 (76889) Diagnoses Allergic contact dermatitis due to plants, except food L23.7 Contact dermatitis type: allergic Contact dermatitis trigger: non-food plants
== END 2025-02-20 10:54 | disposition home or self-care (01) ==
PROVIDERS: PCP Nurse Practitioner Family; Visit Provider Physician Assistant
DX: L23.7 Allergic contact dermatitis due to plants, except food (principal)

== ENCOUNTER → 2025-02-20 08:38 | Outpatient (BNVA) | payer MEDICARE, SELFPAY | PROVIDERS: PCP Nurse Practitioner Family; Visit Provider Physician Assistant | DX: L23.7 Allergic contact dermatitis due to plants, except food (principal) | CPT/HCPCS: 99212 ==

== ENCOUNTER 2025-05-08 08:45 | Outpatient (REF) | payer MEDICARE, SELFPAY ==
[2025-05-08 10:06] LABS: MANUAL DIFF FLAG NO
[2025-05-08 10:19] LABS: Hematocrit 41.6 % (37.0-47.0); Hemoglobin 13.8 g/dl (12.0-16.0); Imm Gran Abs Auto 0.02 X10*3/uL (0.00-0.03); Imm Gran Pct Auto 0.3 % (0.0-0.4); Lymphocytes Absolute Auto 1.8 X10*3/uL (1.2-4.9); Mean Corpuscular HGB Conc 33.2 g/dl (31.0-35.0); Mean Corpuscular Hemoglobin 31.9 pg (27.0-33.0); Mean Corpuscular Volume 96.3 fL (80.0-98.0); NRBC Abs Auto 0.000 X10*3/uL (0.0-0.012); NRBC Pct Auto 0.0 /100WBC (0.0-0.2); Platelet Count 176 X10*3/uL (160-400); Red Blood Count 4.32 X10*6/uL (4.20-5.50); White Blood Count 7.4 X10*3/uL (4.8-10.8)
[2025-05-08 10:31] LABS: Appearance Urine Clear; Glucose Urine UA Negative (Negative); PH 6.0 (5.0-9.0); Specific Gravity - Urine 1.015 (1.005-1.025); UMIC TRIGGER UACC YES
[2025-05-08 10:59] LABS: UACC Culture Trigger YES
[2025-05-08 11:09] LABS: Alanine Aminotransferase 23 U/L (0-31); Albumin Level 4.5 g/dL (3.5-5.0); Alkaline Phosphatase 87 U/L (39-117); Anion Gap 15 (12-20); Aspartate Amino Transferase 24 U/L (5-31); Blood Urea Nitrogen 13 mg/dL (9-16); Calcium 9.5 mg/dL (8.4-10.2); Carbon Dioxide 27 mmol/L (22-29); Chloride 105 mmol/L (96-108); Cholesterol 216 mg/dL (<200); Estimated Glomerular Filt Rate > 60; HDL Cholesterol 46 mg/dL (>40); Potassium 4.5 mmol/L (3.3-5.1); Sodium 142 mmol/L (135-145); Total Protein 7.4 g/dL (6.5-8.0); Triglycerides 115 mg/dL (<150)
== END 2025-05-08 08:46 | disposition home or self-care (01) ==
LOC: HO.HMGCLDS 08:45
PROVIDERS: PCP Nurse Practitioner Family; Visit Provider Nurse Practitioner Family
DX: E78.5 Hyperlipidemia, unspecified (principal)
CPT/HCPCS: 36415; 80053; 80061; 81001; 84443; 85025; 87086

== ENCOUNTER 2025-05-11 09:42 | Outpatient (AMB) | payer MEDICARE, SELFPAY ==
--- NOTE | 2025-05-11 09:49 | A.OFFPC_ITS ---
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 Accompanied by: Self / Same As Patient Allergies No Known Allergies Allergy (Verified 05/11/25 10:30) Medication List - Last Reconciled 05/11/25 by RAYNE RiveraP- adalimumab (Humira(CF) Pen) inject one - 40 mg/0.4 mL pen every 2 weeks subcut albuterol sulfate 90 mcg/actuation 2 puffs inhalation Q6H PRN albuterol sulfate 90 mcg/actuation (Ventolin HFA) 2 puffs inhalation Q6H PRN atorvastatin 10 mg PO BEDTIME budesonide-formoterol 80-4.5 mcg/actuation (Symbicort) 1 puff inhalation BID cholecalciferol (vitamin D3) 1,250 mcg PO QWEEK 3 months folic acid 1 mg PO DAILY hydroxyzine HCl 10 mg PO Q6-8H lorazepam 1 mg PO BID PRN 30 days methotrexate 8 Every Sunday Tobacco use date assessed: 05/11/25 Fall risk assessment: No Falls in past year Last assessed Fall Risk: 05/11/25 Dental Screening Dental Screen Date: 05/11/25 Did you have a dental visit in the last 12 months?: Yes Did you have a dental problem in the last 6 months where you did not have access to dental care?: No Was dental information given to patient?: Patient has dentist HPI Annual PE - see comments HPI Details History of Present Illness The patient is a 64-year-old female presenting for a physical exam. She continues to smoke, which necessitates consideration for low-dose CT scans for lung cancer screening, although she declines this option. The patient is currently on atorvastatin 10 mg for hyperlipidemia, but experiences muscle aches with higher doses. To manage her cholesterol, she will start [place] bergamot 1000 mg daily, with a follow-up cholesterol check in two months. Her mammogram is up to date, and she has completed her colon cancer screening with a stool test. HTN: reports BP is much better at home, i get nervous coming in here Health Maintenance - Colon cancer screening with stool test is up to date - Mammogram is up to date -vaccinations encouraged (prevnar in off ice today, flu to be administered at pharmacy) Social History - Tobacco use: Patient continues to smok e Review of Systems - Respiratory: Reports wheezing Physical Exam General: Cooperative, healthy appearing, comfortable, no acute distress and well developed, obese Orientation: Patient oriented x3 Limitations: No limitations Head: Normal to inspection Ears: Hearing grossly normal bilaterally Nose: Normal external nose present Face and sinus: Normal facial exam Eyes: Appearance normal, both eyes and all related structures Neck: Normal visual inspection and Yes full ROM Respiratory: Faint wheezing scattered throughout, otherwise moving air Cardiovascular: Regular rate and rhythm. Normal S1 and S2 GI: Normal to inspection. Soft to palpation and nontender Skin: freckles to upper chest/upper extrem bilat Neuro: Patient oriented x3 Extremities: Normal to inspection Results - Labs: Cholesterol levels to be recheck ed in two months Plan 1. Tobacco Use The patient continues to smoke and declines low-dose CT scans for lung cancer screening. 2. Hyperlipidemia The patient is on atorvastatin 10 mg but experiences muscle aches with higher doses. She will start [place] bergamot 1000 mg daily, with a follow-up cholesterol check in two months. Discussion Notes During the visit, I discussed the patient's continued smoking and the option of low-dose CT scans for lung cancer screening, which she declined. We also reviewed her hyperlipidemia management, noting her intolerance to higher doses of atorvastatin due to muscle aches. I recommended starting [place] bergamot 1000 mg daily and rechecking her cholesterol in two months. Patient Instructions - Continue current medications and start [place] bergamot 1000 mg daily. - Schedule a follow-up appointment in tw o months for cholesterol recheck. - Consider smoking cessation options. [facility] Medical History Vitamin D deficiency Osteoarthritis of right knee Smoker Asthma Chronic rheumatic arthritis Surgical History No pertinent past surgical history Social History Housing: House Patient Tobacco Use Status: Current everyday Tobacco user Cigarettes Per Day: 5 e-Cigarette/Vaping Use: Never Used service: No Current occupational status: retired Cognitive needs: No Hearing needs: No Vision needs: No Questionnaire PHQ-9 Over the last 2 weeks, how often have you been bothered by any of the following problems? 1. Little interest or pleasure in doing things: not at all 2. Feeling down, depressed, or hopeless: not at all 3. Trouble falling or staying asleep, or sleeping too much: not at all 4. Feeling tired or having little energy: not at all 5. Poor appetite or overeating: not at all 6. Feeling bad about yourself - or that you are a failure or have let yourself or your family down: not at all 7. Trouble concentrating on things, such as reading the newspaper or watching television: not at all 8. Moving or speaking so slowly that other people could have noticed. Or the opposite - being so fidgety or restless that you have been moving around a lot more than usual: not at all 9. Thoughts that you would be better off or of hurting yourself in some way: not at all Total score: 0 Depression Screening Interpretation: Negative Depression Screening Done: Yes 12954 - PHQ-9 Billing: Yes Source: Developed by Drs. Josse Solano, Ariella Palacios, Bridger Nails and colleagues, with an educational edgar from [employer]. Thrive Questionnaire Date Thrive assessed: 10/30/24 I am a: Patient What is your living situation today?: I have a steady place to live Within the past 12 months, did the food you bought not last and you didn't have the money to get more?: Never true Within the past 12 months, did you worry whether your food would run out before you got money to buy more?: Never true Do you have trouble paying for medicines?: No Do you have trouble getting transportation to medical appointments?: No Do you have trouble paying your heating and electricity bill?: No Do you have trouble taking care of your child, family member or friend?: No Do you have trouble with day-to-day activities such as bathing, preparing meals, shopping, managing finances, etc.?: No Are you currently unemployed and looking for a job?: No Are you interested in more education?: No Please select the resources that you would like help with: None Currently or been in a relationship where the following occur: No concerns reported THRIVE Score: 0 AUDIT C Alcohol Use Questionnaire (AUDIT-C) 3. How often do you have six or more drinks on one occasion?: Never Total Score: 0 NARDA-7 AMB Questionnaire NARDA-7 Date NARDA - 7 assessed: 05/11/25 Feeling nervous, anxious, or on edge: 0 = Not at all Not being able to stop or control worryin = Not at all Worrying too much about different things: 0 = Not at all Trouble relaxin = Not at all Being so restless that it is hard to sit still: 0 = Not at all Becoming easily annoyed or irritable: 0 = Not at all Feeling afraid as if something awful might happen: 0 = Not at all Total NARDA-7 score (0-4 normal; 5-9 mild; 10-14 moderate; 15-21 severe): 0 Source: Developed by Drs. Josse Solano, Ariella Palacios, Bridger Nails and colleagues, with an educational edgar from [employer]. NARDA-7 Assessment Billing NARDA-7 Assessment Tool: NARDA-7 Assessment 55455 Physical exam (Primary Care) Vital Signs: Last Vital Signs Pulse 71 05/11/25 09:59 Resp 16 05/11/25 09:59 BP 126/80 05/11/25 10:46 Pulse Ox 98 05/11/25 09:59 Oxygen Delivery Method Room Air 05/11/25 09:59 BMI result Body Mass Index 28.8 Tobacco/Smoking Status: Tobacco use Status Tobacco use date assessed 05/11/25 05/11/25 10:04 Patient Tobacco Use Status Current everyday Tobacco 05/11/25 09:49 e-Cigarette/Vaping Use Never Used 05/11/25 09:49 PHQ-9: PHQ-9 Score PHQ-9: Total score 0 05/11/25 10:48 Depression Screening Interpretation: Negative Thrive Assessment: Date of Thrive Assessment Date Thrive assessed 10/30/24 05/11/25 09:49 Currently or been in a relationship where the following occur: No concerns reported Immunizations pneumoc 20-jl conj-dip cr(PF) 0.5 mL IM syringe Performing Provider: MANAN Rivera Performing Location: [facility] Administered by: CALEB Ware on 05/11/25 10:49 Dose Route Admin Location Dispensed Lot Number Expiration Date [facility] [employer] Strategist 0.5 mL IM Right Deltoid 0.5 mL [id number] 09/26/25 JAISON Espinoza/[employer] Total Dispensed Waste 0.5 mL 0 % VIS Given Date VIS Provided VIS Publication Date 05/11/25 Single Vaccine 24 Eligibility Eligibility Date Funding Source Not [facility] Eligible 05/11/25 Private Coding Level of Care Code Est Pt Level 3 (33187) Est Pt Prev Care >65y(92584) Diagnoses Dyslipidemia E78.5 HTN (hypertension) I10 Encounter for routine adult physical exam with abnormal findings Z00.01 Additional Codes NARDA-7 Assessment Billing - NARDA-7 Assessment Tool: NARDA-7 Assessment 10883 ([id number]) PHQ-9 - 53262 - PHQ-9 Billing: Yes ([id number]) Assessment & Plan Assessment & Plan (1) Dyslipidemia: Code(s): E78.5 - Hyperlipidemia, unspecified Category: Medical (2) HTN (hypertension): Code(s): I10 - Essential (primary) hypertension Category: Medical (3) Encounter for routine adult physical exam with abnormal findings: Code(s): Z00.01 - Encounter for general adult medical examination with abnormal findings Category: Medical Plan . Orders: Orders Pneumococcal 20 Immunization Today Z23 - Encounter for immunization Comprehensive [place]. Panel Fast 2 Months E78.5 - Hyperlipidemia, unspecified Lipid Panel 2 Months E78.5 - Hyperlipidemia, unspecified Medications: Changed From atorvastatin 10 mg PO BEDTIME To atorvastatin 10 mg PO BEDTIME 90 tabs 0RF Refilled budesonide-formoterol 80-4.5 mcg/actuation (Symbicort) 1 puff inhalation BID 10.2 grams 5RF J45.909 - Unspecified asthma, uncomplicated
[2025-05-11 09:59] VITALS: BP 142/82; PULSE 71; RESP 16; O2SAT 98; BMI 28.8
[2025-05-11 10:46] VITALS: BP 126/80
== END 2025-05-11 10:49 | disposition home or self-care (01) ==
LOC: HO.HMCC 09:43
PROVIDERS: PCP Nurse Practitioner Family; Visit Provider Nurse Practitioner Family
DX: Z00.00 Encounter for general adult medical examination without abnormal findings (principal); E78.5 Hyperlipidemia, unspecified; I10 Essential (primary) hypertension; Z23 Encounter for immunization

== ENCOUNTER → 2025-05-11 09:42 | Outpatient (BNVA) | payer MEDICARE, SELFPAY | PROVIDERS: PCP Nurse Practitioner Family; Visit Provider Nurse Practitioner Family | DX: Z00.01 Encounter for general adult medical examination with abnormal findings (principal); E78.5 Hyperlipidemia, unspecified; I10 Essential (primary) hypertension; J45.909 Unspecified asthma, uncomplicated; Z23 Encounter for immunization | CPT/HCPCS: 90471; 90677; 96127; 99397 ==